=== PATIENT | female | born 1995 | race Caucasian/White ===

== ENCOUNTER 2024-04-29 11:04 | Outpatient (CLI) | payer BC, SELFPAY ==
--- NOTE | ~2024-04-29 | XR_ITS ---
EXAMINATION: XR hysterosalpingogram DATE: 04/29/2024 12:52 INDICATION: Infertility. TECHNIQUE: Fluoroscopy was performed by the radiologist during contrast infusion into the endometrial cavity of the uterus by the primary physician. Fluoroscopy exposure time was 0.1 minutes. The total number of images was 4. FINDINGS: The intrauterine cavity is normal in morphology. The fallopian tubes are normal in caliber. There is normal free intraperitoneal spillage of contrast on either side. IMPRESSION: 1. Normal hysterosalpingogram. Reviewed, dictated and finalized at location A. [employer]
[2024-04-29 12:07] LABS: Beta HCG Quantitative < 2.39 mIU/ML
== END 2024-04-29 11:05 | disposition home or self-care (01) ==
PROVIDERS: Visit Provider Obstetrics & Gynecology Gynecology
DX: Z31.49 Encounter for other procreative investigation and testing (principal)
CPT/HCPCS: 36415; 58340; 74740; 84702; Q9966

== ENCOUNTER 2024-08-02 13:45 | Outpatient (CLI) | payer BC, OTHER, SELFPAY ==
--- NOTE | ~2024-08-02 | US_ITS ---
EXAMINATION: US OB transvaginal DATE: 08/02/2024 16:08 CDT INDICATION: History of infertility. COMPARISON: None TECHNIQUE: Real-time transabdominal obstetric ultrasound. FINDINGS: Last menstrual period is given as 06/21/2024 1 para 0 Estimated date of delivery by last menstrual period is 03/28/2025 The uterus measures 9.1 x 5.2 x 4.9 cm. The uterus is retroverted and retroflexed. A gestational sac is identified within the uterus. A pole is identified, with a crown-rump length that measures 0.3 cm, corresponding to an approx imate gestational age of 5 weeks and 5 days. cardiac activity is identified at a rate of 100 bpm. The right ovary measures 2.9 x 1.9 x 2.6 cm. The left ovary measures 5.9 x 5.4 x 5.4 cm. A complex focus of mixed echogenicity is identified withi n the left ovary measuring 3.9 x 4.1 x 4.9 cm. This focus demonstrates lacelike mixed echogenicity an d is part cystic, likely a hemorrhagic cyst. Estimated date of delivery by ultrasound is 03/29/2025 IMPRESSION: Single intrauterine gestation with an approximate gestational age of 5 weeks and 5 days, with c ardiac activity identified. Reviewed, dictated and finalized at location A. IMPRESSION: Single intrauterine gestation with an approximate gestational age of 5 weeks an d 5 days, with cardiac activity identified.
== END 2024-08-02 13:46 | disposition home or self-care (01) ==
PROVIDERS: Visit Provider Obstetrics & Gynecology Gynecology
DX: O09.01 Supervision of pregnancy with history of infertility, first trimester (principal); Z3A.00 Weeks of gestation of pregnancy not specified
CPT/HCPCS: 76817